=== PATIENT | female | born 1985 | race Caucasian/White ===

== ENCOUNTER 2022-05-18 11:37 | Outpatient (CLI) | payer BC, MEDICAID, SELFPAY ==
--- NOTE | 2022-05-18 11:44 | MM_ITS ---
WS: [id number] DIAGNOSTIC BILATERAL DIGITAL BREAST TOMOSYNTHESIS MAMMOGRAPHY WITH CAD Bilateral breast ultrasound, limited. HISTORY: ABNORMAL LYMPH NODE ON RIGHT, palpable area LEFT upper outer quadrant. COMPARISON: None available. TECHNIQUE: Bilateral craniocaudad, mediolateral oblique, and mediolateral views are submitted with to mosynthesis and SM. Spot compression bilateral MLO views. Computer aided detection utilized. Breast composition: The breasts are heterogeneously dense, which may obscure small masses. No suspici ous masses or calcifications are identified. Markers are placed in the upper outer quadrant of each b reast. No underlying distortion or mass. No calcifications. Bilateral breast ultrasound, limited. RIGHT breast: No abnormality in the RIGHT axilla at the area the palpable nodule. LEFT breast: No abnormality in the LEFT breast near the axilla in the area of discomfort. MM/[place] [id number] IMPRESSION: BI-RADS: 2-Benign FOLLOW UP: Age 42
== END 2022-05-18 11:38 | disposition home or self-care (01) ==
LOC: RAD 11:40
PROVIDERS: Visit Provider Family Medicine
DX: R92.8 Other abnormal and inconclusive findings on diagnostic imaging of breast (principal)
CPT/HCPCS: 76642; 77062